=== PATIENT | male | born 1935 | race Caucasian/White ===

== ENCOUNTER 2018-12-10 11:27 | Inpatient (IN) | payer OTHER, MEDICAID ==
[~2018-12-10] VITALS: Ht 175.3 cm; Wt 98.1 kg
[~2018-12-10 11:27] MED LIST: ACARBOSE50 MG PO; AMLODIPINE BESYL5 M1 PO; APAP/HYDROCODON1 T13 PO; ATORVASTATIN CA40 M1 PO; CARVEDILOL6.25 M1 PO; CELEXA40 MG PO; COLACE100 MG PO; COZAAR100 MG PO; COZAAR50 MG PO; GLU500 PO; HUMULIN R100 U/1 M1 IV; MONTELUKAST SOD10 M1 PO; MYL80 CH; NEU300 PO; THERAGRAN-M1 TA4 PO; TRAMADOL HCL50 MG PO
[2018-12-10 12:01] VITALS: Ht 175.3 cm; Wt 98.1 kg
[2018-12-10 12:25] LABS: BASOPHIL % 0.5 % (0-2); PLATELET COUNT 153 x10^3mcL (130-400); RED CELL DISTRIBUTION WIDTH 13.9 % (11.5-14.5)
[2018-12-10 12:32] LABS: CALCIUM 8.1 mg/dL (8.5-10.1); CARBON DIOXIDE 31.8 mmol/L (21-32); CHLORIDE SERUM 105 mmol/L (98-107); CREATININE SERUM 1.1 mg/dL (0.7-1.3); GLUCOSE SERUM 153 mg/dL (74-106); POTASSIUM SERUM 4.2 mmol/L (3.5-5.1); SODIUM SERUM 142 mmol/L (136-145)
[2018-12-10 12:37] LABS: ALKALINE PHOSPHATASE 91 U/L (46-116); ALT/SGPT 46 U/L (16-63); AST/SGOT 52 U/L (15-37); BILIRUBIN TOTAL 0.62 mg/dL (0.20-1.00); HDL CHOLESTEROL 57 mg/dL (40-60); TOTAL PROTEIN, SERUM 6.6 g/dL (6.4-8.2)
[2018-12-10 12:38] LABS: CHOLESTEROL 117 mg/dL (<200)
[2018-12-10] MEDS ORDERED: LASIX20 MG PO (15:45)
[2018-12-10] MEDS ORDERED: CELEXA20 MG PO (15:46)
[2018-12-10] MEDS ORDERED: LANTUS SOLOS100 U/M1 SC (15:46)
[2018-12-10] MEDS ORDERED: GOOD SENSE ASPI81 M3 PO (15:46)
[2018-12-10] MEDS ORDERED: METFORMIN HCL850 MG PO (15:46)
[2018-12-10] MEDS ORDERED: ATORVASTATIN CA20 M1 PO (15:47)
[2018-12-10 16:35] LABS: MAGNESIUM 1.6 mg/dL (1.8-2.4)
[2018-12-10 17:35] VITALS: BP 184/73
[2018-12-10 21:15] VITALS: BP 143/53
[2018-12-11 05:49] VITALS: BP 155/56
[2018-12-11 06:33] LABS: CALCIUM 8.2 mg/dL (8.5-10.1); CARBON DIOXIDE 27.9 mmol/L (21-32); CHLORIDE SERUM 106 mmol/L (98-107); CREATININE SERUM 1.1 mg/dL (0.7-1.3); GLUCOSE SERUM 170 mg/dL (74-106); MAGNESIUM 1.7 mg/dL (1.8-2.4); SODIUM SERUM 141 mmol/L (136-145)
[2018-12-11 06:44] LABS: BASOPHIL % 0.7 % (0-2); PLATELET COUNT 148 x10^3mcL (130-400); RED CELL DISTRIBUTION WIDTH 13.7 % (11.5-14.5)
[2018-12-11 10:23] VITALS: BP 136/43
[2018-12-11 16:36] VITALS: BP 133/45
[2018-12-11 20:25] VITALS: BP 113/35
[2018-12-12 05:37] VITALS: BP 115/41
[2018-12-12 06:27] LABS: CALCIUM 8.2 mg/dL (8.5-10.1); CARBON DIOXIDE 28.1 mmol/L (21-32); CHLORIDE SERUM 106 mmol/L (98-107); CREATININE SERUM 1.3 mg/dL (0.7-1.3); GLUCOSE SERUM 175 mg/dL (74-106); MAGNESIUM 2.2 mg/dL (1.8-2.4); PHOSPHOROUS 4.3 mg/dL (2.5-4.9); POTASSIUM SERUM 4.8 mmol/L (3.5-5.1); SODIUM SERUM 142 mmol/L (136-145)
[2018-12-12 06:33] LABS: BASOPHIL % 0.3 % (0-2); PLATELET COUNT 135 x10^3mcL (130-400)
[2018-12-12 08:02] VITALS: BP 141/59
[2018-12-12 12:17] VITALS: BP 145/53
[2018-12-12 16:00] VITALS: BP 126/62
[2018-12-12 19:51] VITALS: BP 137/46
[2018-12-13 06:26] VITALS: BP 123/60
[2018-12-13 09:00] VITALS: BP 139/40
[2018-12-13 19:05] VITALS: BP 167/63
[2018-12-13 20:32] VITALS: BP 169/79
[2018-12-14 05:01] VITALS: BP 147/63
[2018-12-14 06:41] LABS: CALCIUM 8.4 mg/dL (8.5-10.1); CARBON DIOXIDE 30.5 mmol/L (21-32); CHLORIDE SERUM 102 mmol/L (98-107); CREATININE SERUM 1.3 mg/dL (0.7-1.3); GLUCOSE SERUM 184 mg/dL (74-106); MAGNESIUM 2.3 mg/dL (1.8-2.4); PHOSPHOROUS 2.2 mg/dL (2.5-4.9); POTASSIUM SERUM 5.3 mmol/L (3.5-5.1); SODIUM SERUM 137 mmol/L (136-145)
[2018-12-14 07:25] LABS: BASOPHIL % 0.2 % (0-2); PLATELET COUNT 135 x10^3mcL (130-400); RED CELL DISTRIBUTION WIDTH 12.5 % (11.5-14.5)
[2018-12-14 09:36] VITALS: BP 101/35
[2018-12-14 13:30] VITALS: BP 129/73
[2018-12-14] MEDS ORDERED: TYL325 PO (15:31)
[2018-12-14 19:46] VITALS: BP 129/73
[2018-12-14 21:26] VITALS: BP 110/68
== END 2018-12-14 22:18 | DRG 604 ==
LOC: ED 11:27 → MU 16:01
PROVIDERS: Emergency Medicine; ADMIT Internal Medicine
DX: S30.1XXA Contusion of abdominal wall, initial encounter (principal); N17.0 Acute kidney failure with tubular necrosis; E44.0 Moderate protein-calorie malnutrition; J98.11 Atelectasis; I69.354 Hemiplegia and hemiparesis following cerebral infarction affecting left non-dominant side; E11.9 Type 2 diabetes mellitus without complications; S09.90XA Unspecified injury of head, initial encounter; E87.5 Hyperkalemia; E83.51 Hypocalcemia; E83.42 Hypomagnesemia; G90.8 Other disorders of autonomic nervous system; I16.0 Hypertensive urgency; E78.00 Pure hypercholesterolemia, unspecified; X58.XXXA Exposure to other specified factors, initial encounter; Y93.89 Activity, other specified; Y92.89 Other specified places as the place of occurrence of the external cause; I25.10 Atherosclerotic heart disease of native coronary artery without angina pectoris; Z95.1 Presence of aortocoronary bypass graft; Z91.81 History of falling
CPT/HCPCS: 82962; 83880; 97110-GP; 97116-GP; 97530-GP; Q0092